=== PATIENT | female | born 1965 | race Caucasian/White ===

== ENCOUNTER 2019-03-20 08:28 | Emergency (ER) | payer MEDICARE ==
[~2019-03-20] VITALS: Ht 165.1 cm; Wt 104.3 kg
[~2019-03-20 08:28] MED LIST: ATEN50TA PO; DULO60CA45 PO; GABA600T PO; QUET100T PO
--- NOTE | 2019-03-20 08:50 | NUR ---
Dr Crane at the bedside for MSE.
[2019-03-20] MEDS ORDERED: RIVAROXABAN 15 MG TABLET ONE ×2 (08:59→09:06)
[2019-03-20] MEDS ORDERED: RIVAROXABAN 15 MG TABLET PO ONE (09:00)
[2019-03-20 09:11] VITALS: BP 136/84
[2019-03-20] MEDS ORDERED: RIVAROXABAN 15 MG TABLET PO STA (09:11)
--- NOTE | 2019-03-20 09:12 | NUR ---
Patient discharged to home in stable conditon. Written and verbal after care instructions given. Patient verbalizes understanding of instructions.
== END 2019-03-20 09:12 | disposition home or self-care (01) ==
LOC: ER 08:28
DX: F31.9 Bipolar disorder, unspecified (principal); I10 Essential (primary) hypertension; Z76.0 Encounter for issue of repeat prescription; Z88.0 Allergy status to penicillin; Z79.899 Other long term (current) drug therapy
CPT/HCPCS: A4663

== ENCOUNTER 2019-08-12 10:44 | Inpatient (IN) | payer MEDICARE, OTHER ==
[~2019-08-12] VITALS: Ht 165.1 cm; Wt 108.9 kg
--- NOTE | 2019-08-12 10:45 | NUR ---
Patient is AOx4, tearful and anxious. Patient can not recall the exact dosages of her home medication@this time.
--- NOTE | 2019-08-12 10:48 | NUR ---
Patient in room c/o joint pain and genaralized weakness for a month. Came in today for CP and SOB. Patient A/Ox3. Placed in room 4a.
[2019-08-12] MEDS ORDERED: LISI-603 PO (11:18)
[2019-08-12] MEDS ORDERED: RIVA20TA PO (11:18)
--- NOTE | 2019-08-12 11:20 | NUR ---
@bedside. medical screening exam in progress
[2019-08-12] MEDS ORDERED: LORA-259 PO (11:28)
[2019-08-12] MEDS ORDERED: RISP3TAB14 PO (11:28)
[2019-08-12] MEDS ORDERED: BENZ1TAB7 PO (11:28)
[2019-08-12] MEDS ORDERED: ONDANSETRON 4 MG/2 ML VIAL IV ONE (11:30)
[2019-08-12] MEDS ORDERED: MORPHINE SULFATE 4 MG/1 ML DISP.SYRIN IV ONE (11:30)
[2019-08-12] MEDS ORDERED: MORPHINE SULFATE 4 MG/1 ML DISP.SYRIN ONE (11:46)
[2019-08-12] MEDS ORDERED: ONDANSETRON 4 MG/2 ML VIAL ONE (11:46)
[2019-08-12] MEDS ORDERED: LEVO50TA8 PO (11:52)
[2019-08-12] MEDS ORDERED: IBUP-1957 PO (11:52)
[2019-08-12 12:03] LABS: BASOPHILS # (AUTO) 0.1 K/uL (0.0-8.0); BASOPHILS % (AUTO) 1.1 % (0.0-2.0); EOSINOPHILS # (AUTO) 0.1 K/uL (0.0-0.7); HEMATOCRIT 35.6 % (31.2-41.9); HEMOGLOBIN 11.9 g/dL (10.9-14.3); LYMPHOCYTES # (AUTO) 1.6 K/uL (20.0-40.0); LYMPHOCYTES % (AUTO) 21.8 % (20.5-51.5); MEAN CORPUSCULAR HEMOGLOBIN 25.9 uug (24.7-32.8); MEAN CORPUSCULAR HGB CONC 33 g/dL (32.3-35.6); MEAN CORPUSCULAR VOLUME 77.9 fL (75.5-95.3); MONOCYTES # (AUTO) 0.6 K/uL (2.0-10.0); MONOCYTES % (AUTO) 7.7 % (0.0-11.0); NEUTROPHILS # (AUTO) 5.1 K/uL (1.8-8.9); NEUTROPHILS % (AUTO) 68.4 % (38.5-71.5); PLATELET COUNT (AUTO) 374 K/uL (179-408); RED BLOOD CELL COUNT(AUTO) 4.58 MIL/uL (3.63-4.92); WHITE BLOOD COUNT (AUTO) 7.4 K/uL (3.8-11.8)
[2019-08-12 12:06] LABS: CARBON DIOXIDE 28 mmol/L (21-32); CHLORIDE 104 mmol/L (98-107); CREATININE 0.9 mg/dL (0.6-1.3); GLUCOSE 97 mg/dL (74-106); UREA NITROGEN, BLOOD 10 mg/dL (7-18)
[2019-08-12 12:19] LABS: ALANINE AMINOTRANSFERASE 26 U/L (14-59); ALKALINE PHOSPHATASE 68 U/L (50-136); ASPARTATE AMINOTRANSFERASE 11 U/L (15-37); BILIRUBIN,DIRECT < 0.1 mg/dL (0.0-0.2); BILIRUBIN,TOTAL 0.2 mg/dL (0.2-1.0); TOTAL PROTEIN, SERUM 7.6 g/dL (6.4-8.2)
[2019-08-12] MEDS ORDERED: RIVAROXABAN 10 MG TABLET PO STA (12:28)
--- NOTE | 2019-08-12 12:33 | NUR ---
Pedro Guerra [employer] SUPERVISOR cement mason for Epic into eval patient.
[2019-08-12] MEDS ORDERED: RIVAROXABAN 10 MG TABLET ONE (12:40)
[2019-08-12] MEDS ORDERED: IV NS 1000 ML 1,000 ML IV PRN (13:28)
[2019-08-12] MEDS ORDERED: ONDANSETRON 4 MG/2 ML VIAL IV PRN (13:30)
[2019-08-12] MEDS ORDERED: MAGNESIUM HYDROXIDE 30 ML LIQUID UDC PO PRN (13:30)
[2019-08-12] MEDS ORDERED: MORPHINE SULFATE 2 MG/1 ML DISP.SYRIN IV PRN (13:30)
[2019-08-12] MEDS ORDERED: HYDROCODONE/APAP 5-325MG TABLET PO PRN (13:30)
[2019-08-12] MEDS ORDERED: ZOLPIDEM 5 MG TABLET PO PRN (13:30)
[2019-08-12 13:45] LABS: *BILIRUBIN,URIN NEGATIVE (NEGATIVE); *BLOOD, URINE NEGATIVE (NEGATIVE); *CLARITY,URINE CLEAR (CLEAR); *COLOR,URINE LIGHT YELLOW (YELLOW); *KETONES,URINE NEGATIVE (NEGATIVE); *UROBILINOGEN,URINE 0.2 E.U./dl (NORMAL); LEUKOCYTE ESTERASE ,URINE NEGATIVE (NEGATIVE); NITRITE, URINE NEGATIVE (NEGATIVE); UGLUCOSE NEGATIVE (NEGATIVE)
[2019-08-12 14:03] LABS: BACTERIA,URINE FEW /HPF (NONE SEEN); RBC,URINE 0-3 /HPF (0-3); SQUAMOUS EPITHELIAL CELL,UR MODERATE /HPF (NONE SEEN)
--- NOTE | 2019-08-12 14:29 | NUR ---
Patient admitted from ER around 1pm in stable condition under telemetry. DX: Chest pain. desk monitor applied to patient. Patient on IV heplock eight AC G20. Intact and patent. As per ER nurse morphine 4mg given and zofran 4mg at 1148. YOUTH TEACHER Robel notified. Negative troponin 0.003 and Sinus Rhythm for EKG. YOUTH TEACHER Robel aware. Patient skin intact. not in distress. will continue monitor
[2019-08-12 16:02] VITALS: BP 126/69
[2019-08-12] MEDS ORDERED: Medication Not On Formulary EA (Gabapentin (Neurontin) 600 MG) PO SCH (17:00)
[2019-08-12] MEDS: BENZTROPINE MESYLATE 1 MG TABLET PO SCH (17:09)
[2019-08-12] MEDS: LORAZEPAM 1 MG TABLET PO SCH (17:10)
[2019-08-12] MEDS: risperiDONE 2 MG TABLET PO SCH (17:10)
[2019-08-12] MEDS: GABAPENTIN 300 MG CAPSULE PO SCH (17:10)
[2019-08-12] MEDS: DULOXETINE 60 MG CAPSULE.DR PO SCH (17:10)
[2019-08-12] MEDS: ACETAMINOPHEN 325 MG TABLET PO PRN (17:57)
--- NOTE | 2019-08-12 19:30 | NUR ---
Received patient resting in bed, easily to arouse. A/Ox3. No signs of acute distress noted. No complaints of chest pain at this time, no SOB. Vitals are WNL. Heplock on the right AC is intact and patent. Safety measures initiated. Bed is low and locked, call light within reach. Will continue to monitor.
[2019-08-12 19:53] VITALS: BP 122/70
[2019-08-12] MEDS ORDERED: QUETIAPINE FUMARATE 100 MG TABLET PO SCH (21:00)
[2019-08-12] MEDS: QUETIAPINE FUMARATE 200 MG TABLET PO SCH (21:11)
[2019-08-13] VITALS: BP 117/56
[2019-08-13 05:37] LABS: BASOPHILS # (AUTO) 0.1 K/uL (0.0-8.0); BASOPHILS % (AUTO) 0.8 % (0.0-2.0); EOSINOPHILS # (AUTO) 0.1 K/uL (0.0-0.7); EOSINOPHILS % (AUTO) 1.9 % (0.0-7.0); HEMATOCRIT 32.4 % (31.2-41.9); HEMOGLOBIN 10.7 g/dL (10.9-14.3); LYMPHOCYTES # (AUTO) 2.1 K/uL (20.0-40.0); LYMPHOCYTES % (AUTO) 31.3 % (20.5-51.5); MEAN CORPUSCULAR HGB CONC 33 g/dL (32.3-35.6); MEAN CORPUSCULAR VOLUME 78.5 fL (75.5-95.3); MONOCYTES # (AUTO) 0.6 K/uL (2.0-10.0); MONOCYTES % (AUTO) 8.5 % (0.0-11.0); NEUTROPHILS # (AUTO) 3.9 K/uL (1.8-8.9); NEUTROPHILS % (AUTO) 57.5 % (38.5-71.5); PLATELET COUNT (AUTO) 344 K/uL (179-408); RED BLOOD CELL COUNT(AUTO) 4.13 MIL/uL (3.63-4.92); WHITE BLOOD COUNT (AUTO) 6.8 K/uL (3.8-11.8)
[2019-08-13 05:55] LABS: BILIRUBIN,TOTAL 0.3 mg/dL (0.2-1.0); MAGNESIUM 1.9 mg/dL (1.8-2.4); PHOSPHOROUS 4.5 mg/dL (2.5-4.9); POTASSIUM 4.2 mmol/L (3.5-5.1); TOTAL PROTEIN, SERUM 6.5 g/dL (6.4-8.2)
[2019-08-13] MEDS: LEVOTHYROXINE SODIUM 50 MCG TABLET PO SCH (06:36)
[2019-08-13] MEDS: PANTOPRAZOLE SODIUM 40 MG TABLET.DR PO SCH (06:36)
--- NOTE | 2019-08-13 06:50 | NUR ---
Patient slept well throughout the night. No signs of acute distress noted. Vitals WNL. Morning vitals not taken because patient refused x2 times. Medications given as ordered. Will endorse to next shift.
--- NOTE | 2019-08-13 07:58 | NUR ---
Patient noted resting in bed with eyes closed, no complaints of pain at this time, no signs of distress noted, call light in reach, bed locked and in lowest position, all needs met at this time.
[2019-08-13] MEDS: risperiDONE 2 MG TABLET PO SCH ×2 (08:38→17:31)
[2019-08-13] MEDS: LORAZEPAM 1 MG TABLET PO SCH ×2 (08:38→17:31)
[2019-08-13] MEDS: GABAPENTIN 300 MG CAPSULE PO SCH ×3 (08:38→17:31)
[2019-08-13] MEDS: DULOXETINE 60 MG CAPSULE.DR PO SCH ×2 (08:39→17:31)
[2019-08-13] MEDS: BENZTROPINE MESYLATE 1 MG TABLET PO SCH ×2 (08:39→17:31)
[2019-08-13] MEDS: ATENOLOL 50 MG TABLET PO SCH (08:47)
[2019-08-13] MEDS: ACETAMINOPHEN 325 MG TABLET PO PRN (08:47)
[2019-08-13] MEDS: LISINOPRIL 20 MG TABLET PO SCH (08:47)
[2019-08-13 12:17] VITALS: BP 114/59
[2019-08-13 16:46] VITALS: BP 124/77
[2019-08-13] MEDS ORDERED: RIVAROXABAN 10 MG TABLET PO SCH (17:00)
[2019-08-13] MEDS ORDERED: MAG HYDROX/AL HYDROX/SIMETH 30 ML LIQUID UDC PO PRN (18:45)
--- NOTE | 2019-08-13 19:01 | NUR ---
Patient complaints of indigestion, Received order for Maalox per [employer]PARAT[employer] SPRINKLER INSPECTOR Edmund, Maalox given at this time
--- NOTE | 2019-08-13 19:30 | NUR ---
Received patient resting in bed, easily to arouse. No distress noted. No complaints of pain or SOB. Stated stomach is feeling better. Heplock on the right AC is intact and patent. Vitals WNL. Safety measures initiated. Bed is low and locked, call light within reach. Will continue to monitor.
[2019-08-13 20:09] VITALS: BP 115/70
[2019-08-13] MEDS: QUETIAPINE FUMARATE 200 MG TABLET PO SCH (21:05)
[2019-08-14 05:02] VITALS: BP 120/68
[2019-08-14 05:57] LABS: BASOPHILS % (AUTO) 0.5 % (0.0-2.0); EOSINOPHILS # (AUTO) 0.1 K/uL (0.0-0.7); EOSINOPHILS % (AUTO) 2.2 % (0.0-7.0); HEMATOCRIT 32.5 % (31.2-41.9); HEMOGLOBIN 10.8 g/dL (10.9-14.3); LYMPHOCYTES # (AUTO) 1.8 K/uL (20.0-40.0); LYMPHOCYTES % (AUTO) 28.6 % (20.5-51.5); MEAN CORPUSCULAR HEMOGLOBIN 25.8 uug (24.7-32.8); MEAN CORPUSCULAR HGB CONC 33 g/dL (32.3-35.6); MEAN CORPUSCULAR VOLUME 77.8 fL (75.5-95.3); MONOCYTES # (AUTO) 0.5 K/uL (2.0-10.0); MONOCYTES % (AUTO) 8.2 % (0.0-11.0); NEUTROPHILS # (AUTO) 3.9 K/uL (1.8-8.9); NEUTROPHILS % (AUTO) 60.5 % (38.5-71.5); PLATELET COUNT (AUTO) 358 K/uL (179-408); RED BLOOD CELL COUNT(AUTO) 4.17 MIL/uL (3.63-4.92); WHITE BLOOD COUNT (AUTO) 6.5 K/uL (3.8-11.8)
[2019-08-14 05:59] LABS: CREATININE 0.9 mg/dL (0.6-1.3)
[2019-08-14] MEDS: LEVOTHYROXINE SODIUM 50 MCG TABLET PO SCH (06:20)
[2019-08-14] MEDS: PANTOPRAZOLE SODIUM 40 MG TABLET.DR PO SCH (06:20)
--- NOTE | 2019-08-14 08:00 | NUR ---
received pt. resting in bed alert oriented x4. pt. denies pain/ discomfort. pt. denies sob/ difficulty breathing. IV in R AC 20 gauge intact patent saline lock. safety measures in place. call light within reach. will continue to monitor pt.
[2019-08-14] MEDS: LORAZEPAM 1 MG TABLET PO SCH (08:47)
[2019-08-14] MEDS: DULOXETINE 60 MG CAPSULE.DR PO SCH (08:47)
[2019-08-14] MEDS: risperiDONE 2 MG TABLET PO SCH (08:47)
[2019-08-14] MEDS: GABAPENTIN 300 MG CAPSULE PO SCH ×2 (08:47→12:28)
[2019-08-14] MEDS: BENZTROPINE MESYLATE 1 MG TABLET PO SCH (08:47)
[2019-08-14] MEDS: LISINOPRIL 20 MG TABLET PO SCH (08:53)
[2019-08-14] MEDS: ATENOLOL 50 MG TABLET PO SCH (08:54)
[2019-08-14 10:51] LABS: *BILIRUBIN,URIN NEGATIVE (NEGATIVE); *BLOOD, URINE NEGATIVE (NEGATIVE); *CLARITY,URINE CLEAR (CLEAR); *COLOR,URINE YELLOW (YELLOW); *KETONES,URINE NEGATIVE (NEGATIVE); *UROBILINOGEN,URINE 0.2 E.U./dl (NORMAL); LEUKOCYTE ESTERASE ,URINE NEGATIVE (NEGATIVE); NITRITE, URINE NEGATIVE (NEGATIVE); PH,URINE 6.5 (5.0-8.0); UGLUCOSE NEGATIVE (NEGATIVE)
[2019-08-14 12:00] VITALS: BP 113/65
--- NOTE | 2019-08-14 13:55 | NUR ---
pt. discharged home self-care. iv removed. id band removed. all belongings with pt. pt. signed discharge paperwork.
== END 2019-08-14 13:55 | disposition home or self-care (01) | DRG 206 ==
LOC: ER 10:44 → TELE3 12:50 → MEDSURG3 08-14 01:23
PROVIDERS: ADMIT Nurse Practitioner Acute Care; ATTEND Nurse Practitioner Acute Care
DX: M94.0 Chondrocostal junction syndrome [Tietze] (principal); E44.0 Moderate protein-calorie malnutrition; N39.0 Urinary tract infection, site not specified; Z68.39 Body mass index [BMI] 39.0-39.9, adult; E03.9 Hypothyroidism, unspecified; E66.9 Obesity, unspecified; F31.9 Bipolar disorder, unspecified; G47.30 Sleep apnea, unspecified; R73.03 Prediabetes; Z79.01 Long term (current) use of anticoagulants; Z79.899 Other long term (current) drug therapy; Z82.49 Family history of ischemic heart disease and other diseases of the circulatory system; Z86.711 Personal history of pulmonary embolism; I34.0 Nonrheumatic mitral (valve) insufficiency; I10 Essential (primary) hypertension; E88.09 Other disorders of plasma-protein metabolism, not elsewhere classified
CPT/HCPCS: 36415; 70030-TC; 71045; 83735; 84100; 85025; 85730; 93005; A4663; G0378; J2270; J2405; J7030

== ENCOUNTER 2021-04-12 14:56 | Emergency (ER) | payer MEDICARE, OTHER ==
[~2021-04-12] VITALS: Ht 165.1 cm; Wt 99.8 kg
[~2021-04-12 14:56] MED LIST changes: +BENZ1TAB7 PO; +IBUP-1957 PO; +LEVO50TA8 PO; +LISI20TA30 PO; +LORA-259 PO; +RISP3TAB61 PO; +RIVA20TA PO
[2021-04-12 15:27] LABS: HEMATOCRIT 35.8 % (31.2-41.9); MEAN CORPUSCULAR VOLUME 83.4 fL (75.5-95.3); PLATELET COUNT (AUTO) 350 K/uL (179-408)
--- NOTE | 2021-04-12 15:35 | NUR ---
Patient is awake and alert in no distress. Covid swab sent to lab
[2021-04-12 15:38] LABS: POTASSIUM 3.9 mmol/L (3.5-5.1)
[2021-04-12 15:41] LABS: BILIRUBIN,DIRECT 0.1 mg/dL (0.0-0.2); BILIRUBIN,TOTAL 0.3 mg/dL (0.2-1.0); TOTAL PROTEIN, SERUM 7.5 g/dL (6.4-8.2)
[2021-04-12] MEDS ORDERED: SWABABLE VALVE TRANSFER SET EA MC ONE (16:47)
[2021-04-12] MEDS ORDERED: IOHEXOL 350 100 ML INFUS..BTL ONE (16:47)
[2021-04-12] MEDS ORDERED: IV NORMAL SALINE 250 ML IV ONE (16:47)
[2021-04-12] MEDS ORDERED: GABA600T PO (17:10)
[2021-04-12] MEDS ORDERED: LISI20TA30 PO (17:10)
--- NOTE | 2021-04-12 17:22 | NUR ---
Patient states she does not want a CT scan. States she "feels fine". Dr Grijalva States she understands all the risks of not having a CT scan and having a pulmonary embolism. She was explained all the risks of signing out AMA. She signed it
--- NOTE | 2021-04-12 17:27 | NUR ---
She was told to return or call EMS if she has any new symptoms. She denied SOB at all times while in ER
== END 2021-04-12 17:33 | disposition left against medical advice (07) ==
LOC: ER 14:56
DX: R00.2 Palpitations (principal); J02.9 Acute pharyngitis, unspecified; Z88.0 Allergy status to penicillin; Z79.899 Other long term (current) drug therapy; Z20.822 Contact with and (suspected) exposure to COVID-19
CPT/HCPCS: 36415; 71045; 80048; 80076; 84484; 85025; 85379; 87426; 93005 ×2; 93970; 99285; Q9967; 70030-TC; A4663; J7050